=== PATIENT | male | born 2000 | race Two or more races ===

== ENCOUNTER 2022-04-07 04:40 | Emergency (ER) | payer MEDICAID ==
[~2022-04-07] VITALS: Ht 177.8 cm; Wt 92.6 kg
[2022-04-07] MEDS ORDERED: ACETAMINOPHEN 325MG TABLET PO ONE (05:30)
[2022-04-07 08:36] VITALS: BP 124/75
== END 2022-04-07 08:40 | disposition left against medical advice (07) ==
LOC: ER 04:40
DX: S09.8XXA Other specified injuries of head, initial encounter (principal); V49.49XA Driver injured in collision with other motor vehicles in traffic accident, initial encounter; Y93.89 Activity, other specified; Y92.89 Other specified places as the place of occurrence of the external cause; Y99.8 Other external cause status
CPT/HCPCS: 99285; L0172